=== PATIENT | male | born 1990 | race Caucasian/White ===

== ENCOUNTER 2024-05-21 14:35 | Observation (INO) | payer SELFPAY ==
[2024-05-21 15:26] LABS: Absolute Basophils 0.1 K/uL (0-0.5); Absolute Eosinophils 0.5 K/uL (0-0.5); Absolute Monocytes 0.7 K/uL (0.1-1.3); Absolute Neutrophil 6.3 K/uL (1.8-8.0); Basophils % 0.7 % (0-1.3); Eosinophils % 5.1 % (0-4.4); Hematocrit 44.8 % (39.6-49.0); Hemoglobin 15.3 g/dL (13.6-17.9); Lymphocytes % 21.1 % (15.3-44.8); MCH 30.4 pg (27.0-35.0); MCV 89.4 fL (80-100); MPV 7.5 fL (7.6-11.3); Monocytes % 7.2 % (3.3-12.3); Neutrophils % 65.9 % (41.7-73.7); Platelets 321 thou/uL (152-406); RBC Red Blood Cell Count 5.01 M/uL (4.33-5.43); Red Cell Distribution Width 12.7 % (12.1-15.2)
--- NOTE | 2024-05-21 15:26 | RAD REPORT ---
EXAMINATION: CTA HEAD CLINICAL INDICATION: Male, 33 years old. Vision loss TECHNIQUE: Axial CT images were obtained through the head after intravenous contrast utilizing angiog raphic protocol with 3D post-processing (maximum intensity projection images, volume rendered images and/or shaded surface rendered images). One or more of the following dose reduction technique s were used: Automated exposure control, adjustment of the mA and/or kV according to patient size, and/or iterative reconstruction. Unless otherwise specified, incidental findings do not require dedic ated imaging follow-up. COMPARISON: Noncontrast head CT of the same day FINDINGS: ICA: The petrous, cavernous, and supraclinoid segments of the bilateral internal carotid arteries are normal. The ophthalmic artery origins are visualized and normal. The posterior communicating arteries are patent. KALI: Anterior cerebral arteries are normal bilaterally. The anterior communicating artery is patent. MCA: Middle cerebral arteries are normal bilaterally. 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 Vertebrobasilar: The vertebral arteries are patent. The basilar artery is normal in appearance. 3D images confirm these findings. IMPRESSION: Normal head CTA.
--- NOTE | 2024-05-21 15:26 | RAD REPORT ---
EXAM: Ct Stroke Brain Wo Cont HISTORY: STROKE ALERT COMPARISON: CT angiogram of the neck of the same day TECHNIQUE: Multiple contiguous axial images were obtained for a CT of the brain without contrast. Sag ittal and coronal reformats were performed. One or more of the following dose reduction techniques were used: Automated exposure control, adjus tment of the mA and kV according to patient size, and iterative reconstruction. Unless otherwise specified, incidental findings do not require dedicated imaging follow-up. FINDINGS: No evidence of hydrocephalus, intracranial hemorrhage, or extra-axial fluid collection. The brain is normal in morphology. The calvarium is intact. The visualized paranasal sinuses and mastoid air cells are essentially clear . IMPRESSION: No evidence of acute intracranial abnormality. THIS REPORT CONTAINS FINDINGS THAT MAY BE CRITICAL TO PATIENT CARE. The findings were verbally commun icated via telephone to Pk Martin M.D. on 05/21/2024 3:22 PM.
--- NOTE | 2024-05-21 15:28 | RAD REPORT ---
EXAMINATION: Neck Angio CLINICAL INDICATION: Male, 33 years old. [facility] MAIN vision loss Bed Name: 8 TECHNIQUE: Axial CT images were obtained from the aortic arch to the skull base after intravenous con trast utilizing angiographic protocol. Multiplanar reformats, as well as 3D post-processing (maximum intensity projection images, volume rendered images and/or shaded surface rendered images) w ere generated and reviewed. One or more of the following dose reduction techniques were used: Automated exposure control, adjustment of the mA and/or kV according to patient size, and/or iterativ e reconstruction. Unless otherwise specified, incidental findings do not require dedicated imaging follow-up. COMPARISON: No prior exam. FINDINGS: AORTA: The imaged aortic arch is normal. Normal three-vessel configuration of the arch. CCA: No artifact The common carotid arteries are patent and normal in caliber. ICA/ECA: Bilateral internal and external carotid arteries are patent. There is no significant interna l carotid artery stenosis. VERTEBRAL: The cervical vertebral arteries are patent to the skull base. Vertebral arteries are codom inant. SOFT TISSUE: No significant neck soft tissue abnormalities. The visualized lung apices are clear. 3D images confirm these findings. IMPRESSION: No significant flow abnormality of the neck vessels is identified. NASCET criteria used to quantify ICA stenosis, with the following grading scheme: Mild 0-49% stenosis Moderate 50-69% stenosis Severe 70-99% stenosis Reference: [place] Symptomatic Carotid Endarterectomy Trial Collaborators; Narinder VALE, Zahra TA, Destin RB, et al. Beneficial effect of carotid endarterectomy in symptomatic patients with high-grade carotid stenosis. N Engl J Med. 1990Mar 12;325(7):445-53.
[2024-05-21 15:30] LABS: PT Prothrombin Time 10.3 SECONDS (9.4-12.5); PTT, Activated Partial Thromb 37.5 SECONDS (24.3-36.9); Protime INR 0.92
[2024-05-21 15:40] LABS: ALT/SGPT 20 U/L (16-61); Albumin 3.7 g/dL (3.4-5.0); Alkaline Phosphatase 84 U/L (45-117); Anion Gap 8.5 mEq/L (5.0-15.0); BUN Blood Urea Nitrogen 11 mg/dL (7-18); Bicarbonate 32 mEq/L (21-32); Bilirubin Total 0.5 mg/dL (0.2-1.0); Globulin 3.7 g/dL (2.3-3.5); Glomerular Filtration Rate 98 ml/min (=/>90); Glucose Level 106 mg/dL (74-106); Protein, Total 7.4 g/dL (6.4-8.2); Sodium Level 140 mEq/L (136-145); Troponin High Sensitivity 5.8 pg/mL (<58.9)
[2024-05-21 15:41] LABS: AST/SGOT 13 U/L (15-37); Bilirubin Direct < 0.2 mg/dL (0-0.2); Bilirubin Indirect, Calculated 0.3 mg/dL (0.2-0.8); Potassium 4.5 mEq/L (3.5-5.1)
[2024-05-21] MEDS ORDERED: METOPROLOL TAR 50 MG TAB ONE (15:57)
[2024-05-21] MEDS ORDERED: CLOPIDOGREL 75 MG TABLET ONE (15:58)
[2024-05-21] MEDS ORDERED: ACETAMINOPHEN 500 MG TAB ONE (15:58)
[2024-05-21] MEDS ORDERED: ASPIRIN 81 MG CHEWABLE TABLET ONE (15:58)
--- NOTE | 2024-05-21 16:25 | ER ---
Nurse's Notes [facility] [place] Name: Jonathan Del Rio Age: 33 yrs Sex: Male : 1990 Arrival Date: 05/21/2024 Time: 14:35 Bed 7 Private MD: Diagnosis: Transient visual loss, left eye;Headache Presentation: 05/21 14:58 Chief complaint: Patient states: STATES HAD PERIPHERAL VISION LOSS IN LEFT EYE TODAY db WHILE AT WORK TODAY. STATES SAW "BLACK" IN VISUAL FIELD. DENIES INJURY. STATES THEN HAD HEADACHE THAT HAS NOT GONE AWAY. STATES HAS. Coronavirus screen: Client denies travel out of the [place] in the last 14 days. At this time, the client does not indicate any symptoms associated with coronavirus-19. Ebola Screen: Patient negative for fever greater than or equal to 101.5 degrees Fahrenheit, and additional compatible Ebola Virus Disease symptoms Patient denies exposure to infectious person. Patient denies travel to an Ebola-affected area in the 21 days before illness onset. No symptoms or risks identified at this time. Initial Sepsis Screen: Does the patient meet any 2 criteria? No. Patient's initial sepsis screen is negative. Does the patient have a suspected source of infection? No. Patient's initial sepsis screen is negative. Risk Assessment: Do you want to hurt yourself or someone else? Patient reports no desire to harm self or others. Note STROKE ALERT CALLED. Onset of symptoms was May 21, 2024. 14:58 Method Of Arrival: Ambulatory db 14:58 Acuity: AGUILAR 2 db 15:00 No acute neurological deficit is noted. Pre-hospital glucose is not applicable to this iw patient. Triage Assessment: 15:06 General: Appears. General: Appears in no apparent distress. comfortable, Behavior is db calm, cooperative. Pain: Complains of pain in head Pain Also complains of. Neuro: Level of Consciousness is awake, alert, obeys commands, Oriented to person, place, time, situation. 15:06 The onset of the patients symptoms was May 21, 2024 at 13:00. iw Stroke Activation: Symptom onset < 3 hours Physician: ED Attending; Name: ; Notified At: ; Arrived At: Physician: Mid-Level Provider; Name: JULIÁN Ricks; Notified At: 14:58; Arrived At: 14:58 Physician: [not used]; Name: ; Notified At: ; Arrived At: Physician: [not used]; Name: ; Notified At: ; Arrived At: Physician: [not used]; Name: ; Notified At: ; Arrived At: Historical: - Allergies: 15:06 No Known Allergies; db - PMHx: 15:06 Asthma; db - Immunization history:: Adult Immunizations unknown. - Infectious Disease History:: Denies. Screenin:30 Mallory Swallow Protocol Exclusion Criteria: Exclusion Criteria Result: Proceed Brief es3 Cognitive Screen What is your name? Normal, Where are you right now? Normal, What year is it? Normal. Oral Mechanism Examination Facial Symmetry: Normal, Motion: Normal, Lip Closure: Normal, Oral Mechanism Result: Normal. Result: PASS Notified: Pk GALLEGO. 15:30 [facility] ED Fall Risk Assessment (Adult) History of falling in the last 3 months, iw including since admission No falls in past 3 months (0 pts) Confusion or Disorientation No (0 pts) Intoxicated or Sedated No (0 pts) Impaired Gait No (0 pts) Mobility Assist Device Used No (0 pt) Altered Elimination No (0 pt) Score/Fall Risk Level 0 - 2 = Low Risk Maintained a safe environment. Abuse screen: Denies threats or abuse. Denies injuries from another. Nutritional screening: No deficits noted. Tuberculosis screening: No symptoms or risk factors identified. 15:45 VAN Screening: Arm Drift: Patient shows no arm weakness. Patient is VAN negative. es3 Visual Disturbance: No visual disturbance noted. Aphasia: No aphasia noted. Neglect: No neglect noted. Assessment: 15:30 VAN Scoring: Arm Drift: Patients demonstrates NO arm weakness. Patient is VAN Negative. iw Mallory Swallow Protocol 3 oz Water Swallow Challenge: Pt able to drink all water without stopping, coughing, choking or throat clearing: Yes. TNKase (Tenecteplase) Screening: Indications: Contraindications: Rapidly improving condition or minor deficit: Yes. 16:08 Reassessment: Patient appears in no apparent distress at this time. Patient and/or iw family updated on plan of care and expected duration. Pain level reassessed. Patient is alert, oriented x 3, equal unlabored respirations, skin warm/dry/pink. 17:19 Reassessment: Patient appears in no apparent distress at this time. Patient and/or iw family updated on plan of care and expected duration. Pain level reassessed. Patient is alert, oriented x 3, equal unlabored respirations, skin warm/dry/pink. Vital Signs: 14:58 BP 171 / 117; Pulse 88; Resp 18; Temp 98.1(O); Pulse Ox 97% on R/A; Weight 108.86 kg; db Height 6 ft. 1 in. ; 15:50 BP 167 / 110; Pulse 90; Resp 16; Pulse Ox 96% on R/A; iw 16:20 BP 166 / 114; Pulse 80; Resp 16; Pulse Ox 99% on R/A; iw 16:50 BP 147 / 113; Pulse 77; Resp 16; Pulse Ox 99% on R/A; iw 17:20 BP 147 / 103; Pulse 74; Resp 16; Pulse Ox 95% on R/A; iw 17:50 BP 172 / 118; Pulse 61; Resp 16; Pulse Ox 97% on R/A; iw 14:58 Body Mass Index 31.66 (108.86 kg, 185.42 cm) db NIH Stroke Scale Scores: 15:00 NIHSS Score: 0 db 15:06 NIHSS Score: 0 cp 15:30 NIHSS Score: 0 iw 16:00 NIHSS Score: 0 iw 16:30 NIHSS Score: 0 iw 17:19 NIHSS Score: 0 iw ED Course: 14:39 Patient arrived in ED. sj2 14:45 Pk Bob PA is PHCP. cp 14:45 Pk Martin MD is Attending Physician. cp 15:[address] db 15:01 Triage completed. db 15:05 Inserted saline lock: 20 gauge in right antecubital area, using aseptic technique. iw Blood collected. Flushed with 10 mL NS IV inserted by TG Shi. 15:13 CT Stroke Brain w/o Contrast In Process Unspecified. EDMS 15:16 CT Neck Angio In Process Unspecified. EDMS 15:18 Head angio In Process Unspecified. EDMS 15:50 Stroke CXR 1 View In Process Unspecified. EDMS 16:07 Payal Ramos, RN is Primary Nurse. iw 16:11 Patient has correct armband on for positive identification. Bed in low position. Call iw light in reach. Side rails up X2. Adult w/ patient. Client placed on continuous cardiac and pulse oximetry monitoring. NIBP monitoring applied. environmental monitoring technician on. 16:23 Dave Solares MD is Hospitalizing Provider. cp 17:10 1710 CM met with Mr. Del Rio at the bedside in the ED exam room. Patient identified by ane name and . Demographic sheet confirmed. Patient states he lives with his mother in a single story home. Patient reports that prior to admission, he performs ADLs independently. No DME. NO HH, no home oxygen, or other medical services at this time. Patient does not have a PCP and he confirms he is uninsured and self pay. CM provided community resources packet and list of local Family Practice PCPs. No MPOA in place. Patient states his plan is to return home upon discharge and that either his Mom, Kylie Robertson or his sister will transport him home. CM team will continue to follow and coordinate care during this hospital stay. 18:00 No provider procedures requiring assistance completed. Patient admitted, IV remains in iw place. Administered Medications: 15:58 Drug: foLIC Acid IVPB 1 mg IVPB once Route: IVPB; Site: right antecubital; rs5 18:00 Follow up: IV Status: Completed infusion; IV Intake: 50ml kb3 16:07 Drug: Clopidogrel PO 75 mg PO once Route: PO; iw 16:07 Drug: Metoprolol PO 50 mg PO once Route: PO; iw 16:08 Drug: Acetaminophen PO 1000 mg PO once Route: PO; iw 16:08 Drug: Aspirin PO 81 mg PO once Route: PO; iw 18:00 Drug: Nicoderm CQ Transdermal Patch 21 mg/24 hr 1 patches Transdermal once Route: rs5 Transdermal; Site: right thigh; Medication: 18:00 VIS not applicable for this client. iw Point of Care Testing: Blood Glucose: 15:10 Blood Glucose: 106 mg/dL; iw Ranges: Intake: 18:00 IV: 50ml; Total: 50ml. kb3 Outcome: 16:25 Decision to Hospitalize by Provider. cp 18:05 Admitted to Med/surg accompanied by tech, via wheelchair, room 218, iw 18:05 Condition: good 18:05 Discharge instructions given to patient, family, Instructed on the need for admit, Demonstrated understanding of instructions, 18:20 Patient left the ED. iw NIH Stroke Scale - NIH Stroke Score Date: 05/21/2024 Time: 15:00 Total Score = 0 10. Dysarthria (speech clarity - read or repeat words) - 0(Normal) 11. Extinction and Inattention (visual/tactile/auditory/spatial/personal) - 0(No abnormality) 1a. Level of Consciousness (LOC) - 0(Alert) 1b. Level of Consciousness (LOC) (Month \\T\\ Age) - 0(Both) 1c. LOC Commands (Open \\T\\ Closes Eyes/Fitter Tacker) - 0(Both) 2. Best Gaze (Lateral Gaze Paresis) - 0(Normal) 3. Visual Field Loss - 0(No visual loss) 4. Facial Palsy - 0(Normal) 5a. Left Arm: Motor (10-second hold) - 0(No drift) 5b. Right Arm: Motor (10-second hold) - 0(No drift) 6a. Left Leg: Motor (5-second hold - always test supine) - 0(No drift) 6b. Right Leg: Motor (5-second hold - always test supine) - 0(No drift) 7. Limb Ataxia (finger/nose \\T\\ heel/hatch - test with eyes open) - 0(Absent) 8. Sensory Loss (pinprick arms/legs/face) - 0(Normal) 9. Best Language: Aphasia (description/naming/reading) - 0(No aphasia) Initials: db NIH Stroke Scale - NIH Stroke Score Date: 05/21/2024 Time: 15:06 Total Score = 0 10. Dysarthria (speech clarity - read or repeat words) - 0(Normal) 11. Extinction and Inattention (visual/tactile/auditory/spatial/personal) - 0(No abnormality) 1a. Level of Consciousness (LOC) - 0(Alert) 1b. Level of Consciousness (LOC) (Month \\T\\ Age) - 0(Both) 1c. LOC Commands (Open \\T\\ Closes Eyes/Fitter Tacker) - 0(Both) 2. Best Gaze (Lateral Gaze Paresis) - 0(Normal) 3. Visual Field Loss - 0(No visual loss) 4. Facial Palsy - 0(Normal) 5a. Left Arm: Motor (10-second hold) - 0(No drift) 5b. Right Arm: Motor (10-second hold) - 0(No drift) 6a. Left Leg: Motor (5-second hold - always test supine) - 0(No drift) 6b. Right Leg: Motor (5-second hold - always test supine) - 0(No drift) 7. Limb Ataxia (finger/nose \\T\\ heel/hatch - test with eyes open) - 0(Absent) 8. Sensory Loss (pinprick arms/legs/face) - 0(Normal) 9. Best Language: Aphasia (description/naming/reading) - 0(No aphasia) Initials: cp NIH Stroke Scale - NIH Stroke Score Date: 05/21/2024 Time: 15:30 Total Score = 0 10. Dysarthria (speech clarity - read or repeat words) - 0(Normal) 11. Extinction and Inattention (visual/tactile/auditory/spatial/personal) - 0(No abnormality) 1a. Level of Consciousness (LOC) - 0(Alert) 1b. Level of Consciousness (LOC) (Month \\T\\ Age) - 0(Both) 1c. LOC Commands (Open \\T\\ Closes Eyes/Fitter Tacker) - 0(Both) 2. Best Gaze (Lateral Gaze Paresis) - 0(Normal) 3. Visual Field Loss - 0(No visual loss) 4. Facial Palsy - 0(Normal) 5a. Left Arm: Motor (10-second hold) - 0(No drift) 5b. Right Arm: Motor (10-second hold) - 0(No drift) 6a. Left Leg: Motor (5-second hold - always test supine) - 0(No drift) 6b. Right Leg: Motor (5-second hold - always test supine) - 0(No drift) 7. Limb Ataxia (finger/nose \\T\\ heel/hatch - test with eyes open) - 0(Absent) 8. Sensory Loss (pinprick arms/legs/face) - 0(Normal) 9. Best Language: Aphasia (description/naming/reading) - 0(No aphasia) Initials: iw NIH Stroke Scale - NIH Stroke Score Date: 05/21/2024 Time: 16:00 Total Score = 0 10. Dysarthria (speech clarity - read or repeat words) - 0(Normal) 11. Extinction and Inattention (visual/tactile/auditory/spatial/personal) - 0(No abnormality) 1a. Level of Consciousness (LOC) - 0(Alert) 1b. Level of Consciousness (LOC) (Month \\T\\ Age) - 0(Both) 1c. LOC Commands (Open \\T\\ Closes Eyes/Fitter Tacker) - 0(Both) 2. Best Gaze (Lateral Gaze Paresis) - 0(Normal) 3. Visual Field Loss - 0(No visual loss) 4. Facial Palsy - 0(Normal) 5a. Left Arm: Motor (10-second hold) - 0(No drift) 5b. Right Arm: Motor (10-second hold) - 0(No drift) 6a. Left Leg: Motor (5-second hold - always test supine) - 0(No drift) 6b. Right Leg: Motor (5-second hold - always test supine) - 0(No drift) 7. Limb Ataxia (finger/nose \\T\\ heel/hatch - test with eyes open) - 0(Absent) 8. Sensory Loss (pinprick arms/legs/face) - 0(Normal) 9. Best Language: Aphasia (description/naming/reading) - 0(No aphasia) Initials: NIH Stroke Scale - NIH Stroke Score Date: 05/21/2024 Time: 16:30 Total Score = 0 10. Dysarthria (speech clarity - read or repeat words) - 0(Normal) 11. Extinction and Inattention (visual/tactile/auditory/spatial/personal) - 0(No abnormality) 1a. Level of Consciousness (LOC) - 0(Alert) 1b. Level of Consciousness (LOC) (Month \\T\\ Age) - 0(Both) 1c. LOC Commands (Open \\T\\ Closes Eyes/Fitter Tacker) - 0(Both) 2. Best Gaze (Lateral Gaze Paresis) - 0(Normal) 3. Visual Field Loss - 0(No visual loss) 4. Facial Palsy - 0(Normal) 5a. Left Arm: Motor (10-second hold) - 0(No drift) 5b. Right Arm: Motor (10-second hold) - 0(No drift) 6a. Left Leg: Motor (5-second hold - always test supine) - 0(No drift) 6b. Right Leg: Motor (5-second hold - always test supine) - 0(No drift) 7. Limb Ataxia (finger/nose \\T\\ heel/hatch - test with eyes open) - 0(Absent) 8. Sensory Loss (pinprick arms/legs/face) - 0(Normal) 9. Best Language: Aphasia (description/naming/reading) - 0(No aphasia) Initials: NIH Stroke Scale - NIH Stroke Score Date: 05/21/2024 Time: 17:19 Total Score = 0 10. Dysarthria (speech clarity - read or repeat words) - 0(Normal) 11. Extinction and Inattention (visual/tactile/auditory/spatial/personal) - 0(No abnormality) 1a. Level of Consciousness (LOC) - 0(Alert) 1b. Level of Consciousness (LOC) (Month \\T\\ Age) - 0(Both) 1c. LOC Commands (Open \\T\\ Closes Eyes/Fitter Tacker) - 0(Both) 2. Best Gaze (Lateral Gaze Paresis) - 0(Normal) 3. Visual Field Loss - 0(No visual loss) 4. Facial Palsy - 0(Normal) 5a. Left Arm: Motor (10-second hold) - 0(No drift) 5b. Right Arm: Motor (10-second hold) - 0(No drift) 6a. Left Leg: Motor (5-second hold - always test supine) - 0(No drift) 6b. Right Leg: Motor (5-second hold - always test supine) - 0(No drift) 7. Limb Ataxia (finger/nose \\T\\ heel/hatch - test with eyes open) - 0(Absent) 8. Sensory Loss (pinprick arms/legs/face) - 0(Normal) 9. Best Language: Aphasia (description/naming/reading) - 0(No aphasia) Initials: iw Signatures: Dispatcher [employer] Payal Melgar, RN TG iw Pk Bob PA PA cp Bradberry, Kelly, RN RN kb3 Ronel Vera RN TG db Christophe Samuel RN TG rs5 Yuridia Hedrick RN RN es3 Aditi Daly RN Diony Browne 2 Corrections: (The following items were deleted from the chart) 18:19 18:19 Admitted to Med/surg accompanied by tech, via wheelchair, room 218, iw iw 18:19 18:19 Condition: good iw iw 18:19 18:19 Discharge instructions given to patient, family, Instructed on the need iw for admit, Demonstrated understanding of instructions, iw
--- NOTE | 2024-05-21 16:25 | EDPHYS ---
Physician Documentation [facility] Name: Jonathan Del Rio Age: 33 yrs Sex: Male : 1990 Arrival Date: 05/21/2024 Time: 14:35 Bed 7 Private MD: ED Physician Pk Martin HPI: 05/21 15:03 This 33 yrs old Male presents to ER via Ambulatory with complaints of Headache, Loss Of cp Vision. 15:03 The patient's problem is reported as visual difficulty, decreased visual field. Onset: cp The symptoms/episode began/occurred about 45 minutes prior to arrival, now resolved. Duration: This was a single incident. Context: occurred at work. Associated signs and symptoms: Pertinent positives: headache, Pertinent negatives: abdominal pain, chest pain, numbness, weakness. Severity of symptoms: in the emergency department the symptoms reports headache with vision back to normal. Patient's baseline: Neuro: alert and fully oriented, Motor: no deficits, Ambulation: walks without assistance, Speech: normal. Historical: - Allergies: 15:06 No Known Allergies; db - PMHx: 15:06 Asthma; db - Immunization history:: Adult Immunizations unknown. - Infectious Disease History:: Denies. ROS: 15:05 Constitutional: Negative for body aches, chills, fever, poor PO intake, cp 15:05 ENT: Negative for injury, pain, and discharge, cp 15:05 Eyes: Positive for visual disturbance, 15:05 Cardiovascular: Negative for chest pain, palpitations, 15:05 Respiratory: Negative for cough, shortness of breath, wheezing, 15:05 Abdomen/GI: Negative for abdominal pain, nausea, vomiting, and diarrhea, 15:05 Neuro: Positive for headache, Negative for altered mental status, numbness, weakness, 15:05 All other systems are negative, Exam: 15:06 Constitutional: The patient appears in no acute distress, alert, awake, cp non-diaphoretic, non-toxic, well developed, well nourished, 15:06 Head/Face: Normocephalic, atraumatic. cp 15:06 Eyes: Periorbital structures: appear normal, Pupils: equal, round, and reactive to light and accomodation, Extraocular movements: intact throughout, Conjunctiva: normal, no exudate, no injection, Sclera: no appreciated abnormality, Lids and lashes: appear normal, bilaterally, 15:06 ENT: External ear(s): are unremarkable, Nose: is normal, Mouth: Lips: moist, Oral cp mucosa: pink and intact, moist, Posterior pharynx: Airway: no evidence of obstruction, patent, 15:06 Neck: ROM/movement: is normal, is supple, without pain, no range of motions cp limitations, 15:06 Chest/axilla: Inspection: normal, 15:06 Cardiovascular: Rate: normal, Rhythm: regular, Edema: is not appreciated, JVD: is not appreciated, 15:06 Respiratory: the patient does not display signs of respiratory distress, Respirations: normal, no use of accessory muscles, no retractions, labored breathing, is not present, Breath sounds: are clear throughout, no decreased breath sounds, no stridor, no wheezing, 15:06 Abdomen/GI: Inspection: abdomen appears normal, Palpation: abdomen is soft and non-tender, in all quadrants, 15:06 Neuro: Orientation: to person, place \T\ time. Mentation: is normal, Cerebellar function: is grossly normal, Motor: moves all fours, strength is normal, Sensation: is normal, 15:30 Radiologist reports: no acute findings on Head CT, CT angio head and neck cp Vital Signs: 14:58 BP 171 / 117; Pulse 88; Resp 18; Temp 98.1(O); Pulse Ox 97% on R/A; Weight 108.86 kg; db Height 6 ft. 1 in. ; 15:50 BP 167 / 110; Pulse 90; Resp 16; Pulse Ox 96% on R/A; iw 16:20 BP 166 / 114; Pulse 80; Resp 16; Pulse Ox 99% on R/A; iw 16:50 BP 147 / 113; Pulse 77; Resp 16; Pulse Ox 99% on R/A; iw 17:20 BP 147 / 103; Pulse 74; Resp 16; Pulse Ox 95% on R/A; iw 17:50 BP 172 / 118; Pulse 61; Resp 16; Pulse Ox 97% on R/A; iw 14:58 Body Mass Index 31.66 (108.86 kg, 185.42 cm) db NIH Stroke Scale Scores: 15:00 NIHSS Score: 0 db 15:06 NIHSS Score: 0 cp 15:30 NIHSS Score: 0 iw 16:00 NIHSS Score: 0 iw 16:30 NIHSS Score: 0 iw 17:19 NIHSS Score: 0 iw MDM: 15:00 Medical Screening Exam initiated cp 16:20 Management of patient was discussed with the following: Pediatric Surgeon: DR Edwards, cp neurologist, who recommends admission to services of hospitalist. 16:30 Data reviewed: vital signs, nurses notes, lab test result(s), EKG, radiologic studies, cp CT scan, plain films. 16:30 Management of patient was discussed with the following: Hospitalist: Macho Gardner HERB DIGGER, cp will admit to services of hospitalist after discussion. I considered the following discharge prescriptions or medication management in the emergency department Medications were administered in the Emergency Department. See MAR. Care significantly affected by the following chronic conditions: Hypertension. Counseling: I had a detailed discussion with the patient and/or guardian regarding the historical points, exam findings, and any diagnostic results supporting the discharge/admit diagnosis, lab results, radiology results, the need for further work-up and treatment in the hospital. 05/21 15:03 Order name: Basic Metabolic Panel; Complete Time: 16:16 05/21 15:03 Order name: CBC with Diff; Complete Time: 16:16 05/21 16:16 Interpretation: Normal except: MPV 7.5; EOSINOPHIL % 5.1. 05/21 15:03 Order name: Hepatic Function; Complete Time: 16:16 05/21 16:16 Interpretation: Normal except: AST 13; GLOB 3.7; A/G 1.0. 05/21 15:03 Order name: High Sensitivity Troponin; Complete Time: 16:16 05/21 15:03 Order name: Magnesium; Complete Time: 16:16 05/21 15:03 Order name: Protime (+inr); Complete Time: 16:16 cp 05/21 15:03 Order name: Ptt, Activated; Complete Time: 16:16 05/21 15:03 Order name: UDS 05/21 15:25 Order name: Glucose, Ancillary Testing; Complete Time: 15:28 EDMS 05/21 15:28 Order name: Urinalysis w/ reflexes 05/21 15:32 Order name: CREATININE WHOLE BLOOD; Complete Time: 16:16 EDMS 05/21 15:03 Order name: CT Neck Angio; Complete Time: 15:29 cp 05/21 15:30 Interpretation: Report reviewed. cp 05/21 15:03 Order name: CT Stroke Brain w/o Contrast; Complete Time: 15:28 cp 05/21 15:03 Order name: Stroke CXR 1 View cp 05/21 15:09 Order name: Head angio; Complete Time: 15:28 EDMS 05/21 15:28 Interpretation: Report reviewed. cp 05/21 15:03 Order name: Accucheck; Complete Time: 16:08 cp 05/21 15:03 Order name: Cardiac monitoring; Complete Time: 16:08 cp 05/21 15:03 Order name: EKG - Nurse/Tech; Complete Time: 16:12 cp 05/21 15:03 Order name: IV Saline Lock; Complete Time: 16:08 cp 05/21 15:03 Order name: Labs collected and sent; Complete Time: 16:08 cp 05/21 15:03 Order name: O2 Per Protocol; Complete Time: 16:08 cp 05/21 15:03 Order name: O2 Sat Monitoring; Complete Time: 16: cp 05/21 15:03 Order name: Stroke Swallow Screen; Complete Time: 16:08 cp Administered Medications: 15:58 Drug: foLIC Acid IVPB 1 mg IVPB once Route: IVPB; Site: right antecubital; rs5 18:00 Follow up: IV Status: Completed infusion; IV Intake: 50ml kb3 16:07 Drug: Clopidogrel PO 75 mg PO once Route: PO; iw 16:07 Drug: Metoprolol PO 50 mg PO once Route: PO; iw 16:08 Drug: Acetaminophen PO 1000 mg PO once Route: PO; iw 16:08 Drug: Aspirin PO 81 mg PO once Route: PO; iw 18:00 Drug: Nicoderm CQ Transdermal Patch 21 mg/24 hr 1 patches Transdermal once Route: rs5 Transdermal; Site: right thigh; Point of Care Testing: Blood Glucose: 15:10 Blood Glucose: 106 mg/dL; iw Ranges: Critical Glucose Levels:Adult <50 mg/dl or >400 mg/dl <40 mg/dl or >180 mg/dl Disposition Summary: 05/21/24 16:25 Hospitalization Ordered Notes: Hospitalization Status: Observation cp Provider: Dave Solares cp Location: Telemetry/MedSurg (observation) cp Condition: Stable cp Problem: new cp Symptoms: have improved cp Bed/Room Type: Standard cp Room Assignment: 218(05/21/24 17:17) bc6 Diagnosis - Transient visual loss, left eye cp - Headache cp Discharge Instructions: - Discharge Summary Sheet ane Forms: - Medication Reconciliation Form cp - SBAR form cp - Leadership Thank You Letter cp NIH Stroke Scale - NIH Stroke Score Date: 05/21/2024 Time: 15:00 Total Score = 0 10. Dysarthria (speech clarity - read or repeat words) - 0(Normal) 11. Extinction and Inattention (visual/tactile/auditory/spatial/personal) - 0(No abnormality) 1a. Level of Consciousness (LOC) - 0(Alert) 1b. Level of Consciousness (LOC) (Month \T\ Age) - 0(Both) 1c. LOC Commands (Open \T\ Closes Eyes/Wheel Installer) - 0(Both) 2. Best Gaze (Lateral Gaze Paresis) - 0(Normal) 3. Visual Field Loss - 0(No visual loss) 4. Facial Palsy - 0(Normal) 5a. Left Arm: Motor (10-second hold) - 0(No drift) 5b. Right Arm: Motor (10-second hold) - 0(No drift) 6a. Left Leg: Motor (5-second hold - always test supine) - 0(No drift) 6b. Right Leg: Motor (5-second hold - always test supine) - 0(No drift) 7. Limb Ataxia (finger/nose \T\ heel/hatch - test with eyes open) - 0(Absent) 8. Sensory Loss (pinprick arms/legs/face) - 0(Normal) 9. Best Language: Aphasia (description/naming/reading) - 0(No aphasia) Initials: db NIH Stroke Scale - NIH Stroke Score Date: 05/21/2024 Time: 15:06 Total Score = 0 10. Dysarthria (speech clarity - read or repeat words) - 0(Normal) 11. Extinction and Inattention (visual/tactile/auditory/spatial/personal) - 0(No abnormality) 1a. Level of Consciousness (LOC) - 0(Alert) 1b. Level of Consciousness (LOC) (Month \T\ Age) - 0(Both) 1c. LOC Commands (Open \T\ Closes Eyes/Wheel Installer) - 0(Both) 2. Best Gaze (Lateral Gaze Paresis) - 0(Normal) 3. Visual Field Loss - 0(No visual loss) 4. Facial Palsy - 0(Normal) 5a. Left Arm: Motor (10-second hold) - 0(No drift) 5b. Right Arm: Motor (10-second hold) - 0(No drift) 6a. Left Leg: Motor (5-second hold - always test supine) - 0(No drift) 6b. Right Leg: Motor (5-second hold - always test supine) - 0(No drift) 7. Limb Ataxia (finger/nose \T\ heel/hatch - test with eyes open) - 0(Absent) 8. Sensory Loss (pinprick arms/legs/face) - 0(Normal) 9. Best Language: Aphasia (description/naming/reading) - 0(No aphasia) Initials: cp NIH Stroke Scale - NIH Stroke Score Date: 05/21/2024 Time: 15:30 Total Score = 0 10. Dysarthria (speech clarity - read or repeat words) - 0(Normal) 11. Extinction and Inattention (visual/tactile/auditory/spatial/personal) - 0(No abnormality) 1a. Level of Consciousness (LOC) - 0(Alert) 1b. Level of Consciousness (LOC) (Month \T\ Age) - 0(Both) 1c. LOC Commands (Open \T\ Closes Eyes/Wheel Installer) - 0(Both) 2. Best Gaze (Lateral Gaze Paresis) - 0(Normal) 3. Visual Field Loss - 0(No visual loss) 4. Facial Palsy - 0(Normal) 5a. Left Arm: Motor (10-second hold) - 0(No drift) 5b. Right Arm: Motor (10-second hold) - 0(No drift) 6a. Left Leg: Motor (5-second hold - always test supine) - 0(No drift) 6b. Right Leg: Motor (5-second hold - always test supine) - 0(No drift) 7. Limb Ataxia (finger/nose \T\ heel/hatch - test with eyes open) - 0(Absent) 8. Sensory Loss (pinprick arms/legs/face) - 0(Normal) 9. Best Language: Aphasia (description/naming/reading) - 0(No aphasia) Initials: iw NIH Stroke Scale - NIH Stroke Score Date: 05/21/2024 Time: 16:00 Total Score = 0 10. Dysarthria (speech clarity - read or repeat words) - 0(Normal) 11. Extinction and Inattention (visual/tactile/auditory/spatial/personal) - 0(No abnormality) 1a. Level of Consciousness (LOC) - 0(Alert) 1b. Level of Consciousness (LOC) (Month \T\ Age) - 0(Both) 1c. LOC Commands (Open \T\ Closes Eyes/Wheel Installer) - 0(Both) 2. Best Gaze (Lateral Gaze Paresis) - 0(Normal) 3. Visual Field Loss - 0(No visual loss) 4. Facial Palsy - 0(Normal) 5a. Left Arm: Motor (10-second hold) - 0(No drift) 5b. Right Arm: Motor (10-second hold) - 0(No drift) 6a. Left Leg: Motor (5-second hold - always test supine) - 0(No drift) 6b. Right Leg: Motor (5-second hold - always test supine) - 0(No drift) 7. Limb Ataxia (finger/nose \T\ heel/hatch - test with eyes open) - 0(Absent) 8. Sensory Loss (pinprick arms/legs/face) - 0(Normal) 9. Best Language: Aphasia (description/naming/reading) - 0(No aphasia) Initials: iw NIH Stroke Scale - NIH Stroke Score Date: 05/21/2024 Time: 16:30 Total Score = 0 10. Dysarthria (speech clarity - read or repeat words) - 0(Normal) 11. Extinction and Inattention (visual/tactile/auditory/spatial/personal) - 0(No abnormality) 1a. Level of Consciousness (LOC) - 0(Alert) 1b. Level of Consciousness (LOC) (Month \T\ Age) - 0(Both) 1c. LOC Commands (Open \T\ Closes Eyes/Wheel Installer) - 0(Both) 2. Best Gaze (Lateral Gaze Paresis) - 0(Normal) 3. Visual Field Loss - 0(No visual loss) 4. Facial Palsy - 0(Normal) 5a. Left Arm: Motor (10-second hold) - 0(No drift) 5b. Right Arm: Motor (10-second hold) - 0(No drift) 6a. Left Leg: Motor (5-second hold - always test supine) - 0(No drift) 6b. Right Leg: Motor (5-second hold - always test supine) - 0(No drift) 7. Limb Ataxia (finger/nose \T\ heel/hatch - test with eyes open) - 0(Absent) 8. Sensory Loss (pinprick arms/legs/face) - 0(Normal) 9. Best Language: Aphasia (description/naming/reading) - 0(No aphasia) Initials: NIH Stroke Scale - NIH Stroke Score Date: 05/21/2024 Time: 17:19 Total Score = 0 10. Dysarthria (speech clarity - read or repeat words) - 0(Normal) 11. Extinction and Inattention (visual/tactile/auditory/spatial/personal) - 0(No abnormality) 1a. Level of Consciousness (LOC) - 0(Alert) 1b. Level of Consciousness (LOC) (Month \T\ Age) - 0(Both) 1c. LOC Commands (Open \T\ Closes Eyes/Wheel Installer) - 0(Both) 2. Best Gaze (Lateral Gaze Paresis) - 0(Normal) 3. Visual Field Loss - 0(No visual loss) 4. Facial Palsy - 0(Normal) 5a. Left Arm: Motor (10-second hold) - 0(No drift) 5b. Right Arm: Motor (10-second hold) - 0(No drift) 6a. Left Leg: Motor (5-second hold - always test supine) - 0(No drift) 6b. Right Leg: Motor (5-second hold - always test supine) - 0(No drift) 7. Limb Ataxia (finger/nose \T\ heel/hatch - test with eyes open) - 0(Absent) 8. Sensory Loss (pinprick arms/legs/face) - 0(Normal) 9. Best Language: Aphasia (description/naming/reading) - 0(No aphasia) Initials: Signatures: Dispatcher [employer] EDMS Payal Ramos, RN TG iw Macho Gardner, NETWORK MANAGER-C NETWORK MANAGER-Cla1 Pk Bob PA PA cp Benton, Danielle, RN RN db Christophe Samuel RN RN rs5 Tracee Gonzalez6 Milla Tamayo RN kb3 Corrections: (The following items were deleted from the chart) 15:03 15:03 BASIC METABOLIC PANEL+C.LAB.BRZ ordered. EDMS EDMS 15:03 15:03 CBC+H.LAB.BRZ ordered. EDMS EDMS 15:03 15:03 HEPATIC FUNCTION+C.LAB.BRZ ordered. EDMS EDMS 15:03 15:03 Troponin High Sensitivity+C.LAB.BRZ ordered. EDMS EDMS 15:03 15:03 MAGNESIUM+C.LAB.BRZ ordered. EDMS EDMS 15:03 15:03 PROTIME (+INR)+COAG.LAB.BRZ ordered. EDMS EDMS 15:03 15:03 PTT, ACTIVATED+COAG.LAB.BRZ ordered. EDMS EDMS 15:03 15:03 URINE DRUG SCREEN+UC.LAB.BRZ ordered. EDMS EDMS 15:04 15:04 Neck Angio+CT.RAD.BRZ ordered. EDMS EDMS 15:04 15:04 CT-STROKE BRAIN W/O CONTRAST+CT.RAD.BRZ ordered. EDMS EDMS 15:04 15:04 Chest Single View+RAD.RAD.BRZ ordered. EDMS EDMS 16:08 15:03 NPO ordered. cp iw 16:25 16:25 Brain Wo Cont+MRI.RAD.BRZ ordered. EDMS EDMS 17:17 16:25 cp bc6
[2024-05-21] MEDS ORDERED: FOLIC ACID 5 MG/ML VIAL ONE (16:46)
--- NOTE | 2024-05-21 17:04 | RAD REPORT ---
EXAMINATION: ONE VIEW CHEST XR CLINICAL INDICATION: Male, 33 years old.,vision loss TECHNIQUE: Frontal chest projection is submitted. Examination is limited by patient positioning and t echnique. COMPARISON: No prior exam. FINDINGS: The lungs are well inflated and clear. No pneumothorax or sizable effusion. The heart is normal in s ize. IMPRESSION: No acute intrathoracic abnormalities.
--- NOTE | 2024-05-21 17:13 | P.HP ---
Certification for Inpatient Patient admitted to: Observation With expected LOS: <2 Midnights Patient will require the following post-hospital care: None Practitioner: I am a practitioner with admitting privileges, knowledge of patient current condition, hospital course, and medical plan of care. Services: Services provided to patient in accordance with Admission requirements found in Title 42 Section 412.3 of the Code of Federal Regulations Patient History Date of Service: 05/21/24 Reason for admission: Visual disturbance History of Present Illness: 33-year-old male with history of controlled hypertension, suspected sleep apnea, alcohol use disorder, tobacco use disorder,recreational cocaine use presents to the emergency department with chief complaint of visual disturbances, headache. He reports that at around 1:00 he began having visual changes including the seeing in the peripheral martinez of his left eye the subsequently feeling as if he is having difficulty seeing peripheral martinez in both eyes shortly after that she began having a headache, visual disturbance for lasted for about 5 minutes but the headache persisted. Evaluated in the emergency department CT head without contrast as well as CT angio of the head and neck were negative for acute findings/LVO. Labs were unremarkable, ED provider wishes to be observation for further evaluation and management he was given aspirin, Plavix in the ED. 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 with family - Family History Father -: Diabetes - Social History Smoking Status: Current every day smoker Counseled patient to stop smoking for: less than 10 minutes Alcohol use: Yes CD- Drugs: Yes Caffeine use: Yes Place of Residence: Home Review of Systems 10-point ROS is otherwise unremarkable Neurological: Other (Headache, visual changes) Physical Examination - Physical Exam General: Alert, In no apparent distress, Oriented x3 HEENT: Atraumatic, PERRLA, EOMI Neck: Supple, 2+ carotid pulse no bruit, No LAD Respiratory: Clear to auscultation bilaterally, Normal air movement Cardiovascular: Regular rate/rhythm, Normal S1 S2 Gastrointestinal: Normal bowel sounds, No tenderness Musculoskeletal: No tenderness Integumentary: No rashes Neurological: Normal speech, Normal strength at 5/5 x4 extr, Normal tone, Sensation intact, Cranial nerves 3-12 intact, Normal affect, Other (NIH 0, visual martinez intact) - Studies Laboratory Data (last 24 hrs) 05/21/24 05/21/24 05/21/24 15:05 15:05 15:05 WBC 9.50 Hgb 15.3 Hct 44.8 Plt Count 321 PT 10.3 INR 0.92 APTT 37.5 H Sodium 140 Potassium 4.5 BUN 11 Creatinine 1.04 Glucose 106 Magnesium 2.0 Total Bilirubin 0.5 AST 13 L ALT 20 Alkaline Phosphatase 84 Assessment and Plan - Plan Assessment: Visual disturbance/headacheresolved possible TIA versus complex migraine Uncontrolled hypertension Alcohol use disorder Tobacco use disorder Cocaine use Suspected obstructive sleep apnea Plan: Visual disturbance/headacheresolved possible TIA versus complex migraine Uncontrolled hypertension CT head without contrast and CTA of the head and neck negative for acute findings/LVO MRI brain and echocardiogram ordered Neurology Consult NIH currently 0 Neurochecks, aspirin, Plavix, statin ordered Allow for permissive hypertension up to 220/110 Alcohol use disorder Tobacco use disorder Cocaine use Counseled on importance for cessation and increased risk of stroke Suspected obstructive sleep apnea Needs outpatient sleep study Discussed with patient DVT PPX:Lovenox Code status:Full Discharge Plan: Home Plan to discharge in: 24 Hours - Advance Directives Does patient have a Living Will: No Does patient have a Durable POA for Healthcare: No - Code Status/Comfort Care Code Status Assessed: Yes (Full code) Critical Care: No Time Spent Managing Pts Care (In Minutes): 60
[2024-05-21] MEDS ORDERED: NICOTINE 21 MG/PAT TD ONE (17:42)
[2024-05-21] MEDS ORDERED: ACETAMINOPHEN 325 MG TABLET PO PRN (17:48)
[2024-05-21] MEDS ORDERED: HYDRALAZINE HCL 20 MG/ML VIAL IV PRN (17:59)
[2024-05-21 18:30] LABS: Sqamous Epithelial <5 /HPF (None Seen); Urine Bacteria <20 /HPF (<20); Urine Bilirubin NEGATIVE (Negative); Urine Blood Negative (Negative); Urine Clarity Clear (Clear); Urine Color Light-Yellow (Yellow); Urine Culture Reflex Order NOT NEEDED; Urine Glucose NEGATIVE (Negative); Urine Ketones NEGATIVE (Negative); Urine Microscopic Reflex YN ORDER UMIC; Urine Mucus Slight /HPF (None Seen); Urine Nitrite NEGATIVE (Negative); Urine Protein NEGATIVE (Negative); Urine RBC <5 /HPF (None Seen); Urine Urobilinogen Normal (Normal); Urine pH 7.5 (5.0-7.0)
[2024-05-21 18:33] VITALS: BMI 32.4
[2024-05-21 18:33] LABS: Barbiturates NEGATIVE (NEGATIVE); Benzodiazepines POSITIVE (NEGATIVE); Cocaine POSITIVE (NEGATIVE); METHAMPHETAM NEGATIVE (NEGATIVE); Methadone NEGATIVE (NEGATIVE); Opiates NEGATIVE (NEGATIVE); Phencyclidine NEGATIVE (NEGATIVE); THC Cannibis NEGATIVE (NEGATIVE)
[2024-05-21 18:41] LABS: Specific Gravity > 1.030 (1.005-1.030)
[2024-05-21] MEDS: ATORVASTATIN 40 MG TAB PO SCH (22:47)
[2024-05-22 02:53] VITALS: O2SAT 95
[2024-05-22 04:23] VITALS: BP 150/97; TEMP 97.9
[2024-05-22 06:25] LABS: Absolute Basophils 0.1 K/uL (0-0.5); Absolute Eosinophils 0.7 K/uL (0-0.5); Absolute Lymphocytes (CBC) 2.4 K/uL (0.7-4.9); Absolute Monocytes 0.6 K/uL (0.1-1.3); Absolute Neutrophil 3.8 K/uL (1.8-8.0); Basophils % 0.8 % (0-1.3); Eosinophils % 9.7 % (0-4.4); Hematocrit 46.1 % (39.6-49.0); Hemoglobin 15.7 g/dL (13.6-17.9); MCH 30.6 pg (27.0-35.0); MCHC 34.1 g/dL (32.0-36.0); MCV 89.6 fL (80-100); MPV 7.7 fL (7.6-11.3); Monocytes % 7.3 % (3.3-12.3); Neutrophils % 50.2 % (41.7-73.7); Nucleated Red Blood Cells % 0.1 % (0-0); Platelets 335 thou/uL (152-406); RBC Red Blood Cell Count 5.15 M/uL (4.33-5.43); Red Cell Distribution Width 12.8 % (12.1-15.2)
[2024-05-22 07:17] LABS: Anion Gap 6.4 mEq/L (5.0-15.0); BUN Blood Urea Nitrogen 8 mg/dL (7-18); Bicarbonate 29 mEq/L (21-32); Glomerular Filtration Rate 102 ml/min (=/>90); Glucose Level 98 mg/dL (74-106); HDL Cholesterol 37 mg/dL (40-60); Sodium Level 141 mEq/L (136-145)
[2024-05-22 07:22] LABS: Potassium 4.4 mEq/L (3.5-5.1)
[2024-05-22 07:32] LABS: LDL, Direct 127 mg/dL (100-129)
--- NOTE | 2024-05-22 08:26 | RAD REPORT ---
EXAMINATION: MRI BRAIN WITHOUT CONTRAST CLINICAL INDICATION: Male, 33 years old.[facility] N vision loss/ cva TECHNIQUE: Multiplanar multisequence MR images of the brain were obtained without intravenous contras t. Unless otherwise specified, incidental findings do not require dedicated imaging follow-up. COMPARISON: Head CT and CT angiogram 05/21/2024 FINDINGS: Motion artifact somewhat limits evaluation, despite attempts at repeat imaging. INTRACRANIAL: Midline structures are unremarkable. Diffusion-weighted images show no acute or early subacute infarction. No abnormal brain parenchymal signal. The ventricles are normal in size and morphology. No augmented susceptibility signal abnormality. There is no mass effect or midline shift. No abnormal extraaxial fluid collection. VASCULATURE: Normal signal voids in the larger intracranial arteries and dural venous sinuses. SINUSES: The paranasal sinuses and mastoid air cells are predominantly clear. BONE: The marrow signal pattern is within normal limits. IMPRESSION: No significant intracranial abnormalities.
--- NOTE | 2024-05-22 08:31 | RAD REPORT ---
EXAMINATION: ONE VIEW CHEST XR CLINICAL INDICATION: Male, 33 years old.,hypoxic TECHNIQUE: Frontal chest projection is submitted. Examination is limited by patient positioning and t echnique. COMPARISON: 05/21/2024 FINDINGS: The lungs are well inflated and clear. No pneumothorax or sizable effusion. The heart is normal in s ize. IMPRESSION: No acute intrathoracic abnormalities.
[2024-05-22] MEDS: FOLIC ACID 1 MG TABLET PO SCH (08:32)
[2024-05-22] MEDS: ENOXAPARIN 40 MG/0.4 ML SQ SCH (08:32)
[2024-05-22] MEDS: ASPIRIN EC 81 MG TAB PO SCH (08:32)
--- NOTE | 2024-05-22 13:37 | ECHO ---
HEIGHT: 6 ft 1 in WEIGHT: 239 lb 15.923 oz DATE OF STUDY: 05/22/[address]: Macho Gardner NP 2-DIMENSIONAL: YES M.MODE: YES DOPPLER: YES COLOR FLOW: YES TDS: PORTABLE: YES DEFINITY: BUBBLE STUDY: DIAGNOSIS: STROKE CARDIAC HISTORY: CATHERIZATION: SURGERY: PROSTHETIC VALVE: PACEMAKER: MEASUREMENTS (cm) DIASTOLIC (NORMALS) SYSTOLIC (NORMALS) IVSd 1.2 (0.6-1.2) LA Diam 3.3 (1.9-4.0) LVEF 63% LVIDd 4.4 (3.5-5.7) LVIDs 2.9 (2.0-3.5) %FS 34% LVPWd 1.1 (0.6-1.2) Ao Diam 2.7 (2.0-3.7) 2 DIMENSIONAL ASSESSMENT: RIGHT ATRIUM: NORMAL LEFT ATRIUM: NORMAL RIGHT VENTRICLE: NORMAL LEFT VENTRICLE: NORMAL TRICUSPID VALVE: NORMAL MITRAL VALVE: NORMAL PULMONIC VALVE: NORMAL AORTIC VALVE: NORMAL PERICARDIAL EFFUSION: NONE AORTIC ROOT: NORMAL LEFT VENTRICULAR WALL MOTION: NORMAL DOPPLER/COLOR FLOW: NORMAL COMMENTS: 1. NORMAL LEFT VENTRICULAR SYSTOLIC FUNCTION, EJECTION FRACTION 60-65%, NORMAL WALL MOTION 2. NORMAL DIASTOLIC FUNCTION 3. NEGATIVE BUBBLE STUDY TECHNOLOGIST: MCKAYLA ALMENDAREZ
--- NOTE | 2024-05-22 14:13 | EKG ---
Test Date: 2024-05-21 Test Time: 15:23:55 Cut Out Marker: JENSEN MEASUREMENT RESULTS: Intervals: Rate: 82 RI: 154 QRSD: 90 QT: 366 QTc: 427 [place]: P: 42 RI: 154 QRS: -27 T: 20 INTERPRETIVE STATEMENTS: Normal sinus rhythm Moderate voltage criteria for LVH, may be normal variant Borderline ECG No previous ECG available for comparison Electronically Signed On 05-22-24 14:11:16 CDT by Pert Bowen
--- NOTE | 2024-05-22 14:51 | P.DS ---
Admission Date: 05/21/24 Discharge Date: 05/22/24 Disposition: ROUTINE DISCHARGE Discharge Condition: GOOD Reason for Admission: Visual disturbance Brief History of Present Illness: 33-year-old male with history of controlled hypertension, suspected sleep apnea, alcohol use disorder, tobacco use disorder,recreational cocaine use presents to the emergency department with chief complaint of visual disturbances, headache. He reports that at around 1:00 he began having visual changes including the seeing in the peripheral martinez of his left eye the subsequently feeling as if he is having difficulty seeing peripheral martinez in both eyes shortly after that she began having a headache, visual disturbance for lasted for about 5 minutes but the headache persisted. Evaluated in the emergency department CT head without contrast as well as CT angio of the head and neck were negative for acute findings/LVO. Labs were unremarkable, ED provider wishes to be observation for further evaluation and management he was given aspirin, Plavix in the ED. Hospital Course: Assessment: Visual disturbance/headacheresolved possible TIA versus complex migraine Uncontrolled hypertension Alcohol use disorder Tobacco use disorder Cocaine use Suspected obstructive sleep apnea Patient was admitted to the hospital for visual disturbance, hypertension with concern for hypertensive emergency versus TIA versus complex migraine. CT head without contrast as well as CTA of the head and neck were negative for acute findings or large vessel occlusion. He also underwent an MRI brain without contrast which did not show any acute findings or findings of a stroke. His blood pressure on arrival to the emergency department was 170/118, he reports his blood pressure typically runs around 150/110. He also admits to near daily drinking, tobacco use, cocaine use and likely is suffering with obstructive sleep apnea. His symptoms resolved shortly after presentation to the emergency department, NIH score was 0 throughout hospitalization. His vision is back to normal at this time. Stable for discharge time with prescription for new medications and recommended lifestyle changes and close follow-up. Prescriptions will be sent to his pharmacy for the following medications: Atorvastatin 40 mg at bedtime-hypertriglyceridemia/cholesterol Lisinopril 10 mg daily for blood pressure Clopidogrel/Plavix 75 mg daily to reduce the risk for stroke Will need to purchase aspirin 81 mg [id number] and take daily until otherwise instructed by your primary care doctor Please arrange for close follow-up with a primary care doctor to establish yourself with You should also follow-up with the neurologist Dr. Edwards You need a sleep study to determine if you have sleep apnea which could contribute to your elevated blood pressure and increased risk for stroke and heart disease You need to stop drinking, smoking and using cocaine as they increase your risk for problems for many health problems including stroke, heart attack, lung cancer Vital Signs/Physical Exam: Temp Pulse Resp BP Pulse Ox 97.9 F 83 18 150/97 H 97 05/22/24 04:00 05/22/24 04:00 05/22/24 04:00 05/22/24 04:00 05/22/24 04:00 General: Alert, In no apparent distress, Oriented x3 HEENT: Atraumatic, PERRLA, EOMI Neck: Supple, JVD not distended Respiratory: Clear to auscultation bilaterally, Normal air movement Cardiovascular: Regular rate/rhythm, Normal S1 S2 Gastrointestinal: Normal bowel sounds, No tenderness Musculoskeletal: No tenderness Integumentary: No rashes Neurological: Normal speech, Normal affect, Other (NIH 0) Lymphatics: No axilla or inguinal lymphadenopathy Laboratory Data at Discharge: WBC 7.60 thou/uL (4.3-10.9) 05/22/24 05:33 Hgb 15.7 g/dL (13.6-17.9) 05/22/24 05:33 Hct 46.1 % (39.6-49.0) 05/22/24 05:33 Plt Count 335 thou/uL (152-406) 05/22/24 05:33 PT 10.3 SECONDS (9.4-12.5) 05/21/24 15:05 INR 0.92 05/21/24 15:05 APTT 37.5 SECONDS (24.3-36.9) H 05/21/24 15:05 Sodium 141 mEq/L (136-145) 05/22/24 05:33 Potassium 4.4 mEq/L (3.5-5.1) 05/22/24 05:33 BUN 8 mg/dL (7-18) 05/22/24 05:33 Creatinine 1.01 mg/dL (0.70-1.30) 05/22/24 05:33 Glucose 98 mg/dL (74-106) 05/22/24 05:33 Magnesium 2.0 mg/dL (1.6-2.4) 05/21/24 15:05 Total Bilirubin 0.5 mg/dL (0.2-1.0) 05/21/24 15:05 AST 13 U/L (15-37) L 05/21/24 15:05 ALT 20 U/L (16-61) 05/21/24 15:05 Alkaline Phosphatase 84 U/L (45-117) 05/21/24 15:05 Triglycerides 459 mg/dL (<150) H 05/22/24 05:33 Cholesterol 184 mg/dL (<200) 05/22/24 05:33 LDL Cholesterol Direct 127 mg/dL (100-129) 05/22/24 05:33 HDL Cholesterol 37 mg/dL (40-60) L 05/22/24 05:33 Cholesterol/HDL Ratio 4.97 05/22/24 05:33 Home Medications: Atorvastatin Calcium [Lipitor] 40 mg PO BEDTIME #30 tab 05/22/24 Clopidogrel Bisulfate [Plavix] 75 mg PO DAILY #30 tab 05/22/24 lisinopriL [Lisinopril] 10 mg PO DAILY #30 tab 05/22/24 New Medications: Atorvastatin Calcium [Lipitor] 40 mg PO BEDTIME #30 tab lisinopriL [Lisinopril] 10 mg PO DAILY #30 tab Clopidogrel Bisulfate [Plavix] 75 mg PO DAILY #30 tab Physician Discharge Instructions: Patient was admitted to the hospital for visual disturbance, hypertension with concern for hypertensive emergency versus TIA versus complex migraine. CT head without contrast as well as CTA of the head and neck were negative for acute findings or large vessel occlusion. He also underwent an MRI brain without contrast which did not show any acute findings or findings of a stroke. His blood pressure on arrival to the emergency department was 170/118, he reports his blood pressure typically runs around 150/110. He also admits to near daily drinking, tobacco use, cocaine use and likely is suffering with obstructive sleep apnea. His symptoms resolved shortly after presentation to the emergency department, NIH score was 0 throughout hospitalization. His vision is back to normal at this time. Stable for discharge time with prescription for new medications and recommended lifestyle changes and close follow-up. Prescriptions will be sent to his pharmacy for the following medications: Atorvastatin 40 mg at bedtime-hypertriglyceridemia/cholesterol Lisinopril 10 mg daily for blood pressure Clopidogrel/Plavix 75 mg daily to reduce the risk for stroke Will need to purchase aspirin 81 mg [id number] and take daily until otherwise instructed by your primary care doctor Please arrange for close follow-up with a primary care doctor to establish yourself with You should also follow-up with the neurologist Dr. Edwards You need a sleep study to determine if you have sleep apnea which could contribute to your elevated blood pressure and increased risk for stroke and heart disease You need to stop drinking, smoking and using cocaine as they increase your risk for problems for many health problems including stroke, heart attack, lung cancer Diet: AHA Activity: Ad carmelo Followup: Chun Edwards MD [ASSOCIATE-ACTIVE - CAN ADMIT] - NONE,NONE [Primary Care Provider] - 1-2 Weeks Time spent managing pt's care (in minutes): 47
== END 2024-05-22 10:06 | disposition home or self-care (01) ==
LOC: ER 14:35 → ERHOLD 16:56 → 2ND 18:03
PROVIDERS: ADMIT Hospitalist; ATTEND Hospitalist
DX: H53.8 Other visual disturbances (principal); R51.9 Headache, unspecified; I10 Essential (primary) hypertension; F10.90 Alcohol use, unspecified, uncomplicated; F14.90 Cocaine use, unspecified, uncomplicated; J45.909 Unspecified asthma, uncomplicated; Z72.0 Tobacco use; Z71.41 Alcohol abuse counseling and surveillance of alcoholic; Z71.51 Drug abuse counseling and surveillance of drug abuser; Z71.6 Tobacco abuse counseling
CPT/HCPCS: 96365; 93005; 93306; 85025 ×2; 81001; 80048 ×2; 36415; 83721; 83735; 85610; 80061; 82565; 82947; 80076; 85730; 84443; 83036; 84484; 84439; 84145; 80307; 70496; 70498; 70450; 71045 ×2; 70551; 99285; 96366; Q9967; J1650; G0378